=== PATIENT | female | born 1960 | race Caucasian/White ===

== ENCOUNTER → 2023-11-09 08:22 | Outpatient (REF) | payer BC, SELFPAY | LOC: WDC 08:22 | PROVIDERS: ATTENDING PHYSICIAN Obstetrics & Gynecology Gynecology; FAMILY PHYSICIAN Family Medicine | DX: N64.4 Mastodynia (principal) | CPT/HCPCS: 76642; 77061; 77065 ==

== ENCOUNTER 2024-11-03 14:45 | Emergency (ER) | payer BC, SELFPAY ==
[2024-11-03 14:58] VITALS: BP 125/91
--- NOTE | 2024-11-03 17:01 | ED.GENMED ---
History of Present Illness
General
Chief Complaint: Fall
Source: patient and spouse
Time Seen by Provider: 11/03/24 16:01
History of Present Illness
History of Present Illness:
Note:
CHIEF COMPLAINT(S)
Right wrist pain following a fall.
HISTORY OF PRESENT ILLNESS
The patient is a 64-year-old female with a history of severe osteoporosis who presents with right wrist pain after a fall. 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
hands. The pain is localized to the right wrist, particularly at the dorsal medial aspect distal to the ulnar styloid. She denies pain in the elbow, shoulder, clavicle, head, neck, back, and legs, and there is no history of head injury or loss of
consciousness. The patient's spouse provided additional history, confirming the details of the fall. The patient has been previously treated with romosozumab (Evenity) for a year and has an upcoming dose of denosumab (Prolia). She has been informed
that her osteoporosis is significant, which increases her risk of fractures even with minor trauma.
PHYSICAL EXAM
- General: The patient is awake, alert, and oriented, without any distress.
- Head: No evidence of head injury; no hematoma, contusions, or abrasions noted.
- Musculoskeletal:
- Neck: Normal range of motion.
- Right Upper Limb: Right elbow, right shoulder, and right clavicle are non-tender with normal range of motion.
- Right Wrist: Limited range of motion due to pain; tenderness is noted at the dorsal medial aspect distal to the ulnar styloid, and minor tenderness at the dorsal lateral aspect and distal radius.
- Lower Extremities: Able to walk post-fall without significant difficulty. abrasions to R knee
PLAN
- Splint the right wrist for stabilization and pain management.
- Offer an x-ray of the right toe if symptoms worsen, though treatment would typically include a hard sole shoe or albert taping.
- Follow up with the patient�s primary care provider or patient service specialist, especially regarding osteoporosis management.
DIFFERENTIAL DIAGNOSIS
The Differential Diagnosis includes, in no particular order and is not limited to:
1. Distal radius fracture
2. Carpal bone fracture
3. Wrist sprain
4. Contusion of the wrist
5. Osteoporotic fracture
6. Scaphoid fracture
7. Triquetrum fracture
8. Ligamentous injury of the wrist
9. Soft tissue injury
10. Metacarpal fracture
CARE-UPDATE
11/03/24 - 17:02
Updated the assessment to include a right triquetrum fracture based on independent review of the films.
Disposition:
ASSESSMENT
The patient has a right wrist fracture after a fall. multiple abrasions
EMERGENCY TREATMENTS ADMINISTERED
A volar splint was placed on the right wrist.
PLAN
Advise close outpatient orthopedic follow-up.
PATIENT EDUCATION AND COUNSELING
Recommended rest, ice, and elevation of the right wrist. Keep abrasions clean and dry.
FOLLOW-UP INSTRUCTIONS
Follow up with an patient service specialist for the right wrist fracture.
MEDICAL DECISION MAKING
1. Number & Complexity of Problems: Chronic conditions affecting care include severe osteoporosis. Differential diagnoses considered include wrist fracture.
2. Data Reviewed: Information was obtained from a spouse as an independent historian.
PATHOLOGIES TO CONSIDER
Possible osteoporotic fracture given the patients severe osteoporosis and wrist fracture after the fall.
Past History
Past History
ED Past Medical History: Psychiatric and Other
ED Past Surgical History: Appendectomy, , Orthopedic and Other
Patient has exhibited threatening behavior?: No
Social History
Tobacco: Former smoker (quit 20 years ago)
Alcohol: Occasional
Drug: None
Personal:
Living: with family
Family History
Family History: CAD (grandparents); Negative Early CAD
Phy Exam
Physical Exam
Physical Exam:
.
Course
Orders/Labs/Results
Orders:
Orders
11/03/24 14:48
Knee, Right 4 or More Views [CR Knee- Right 4 Or More View*] Urgent
Comment:
Reason For Exam: injury
Wrist, Right 3 Views [CR Wrist - Right Min 3 Views] Urgent
Comment:
Reason For Exam: injury
11/03/24 16:15
CR Toe(s) Min 2 Vw Right Urgent
Comment:
Reason For Exam: pain
11/03/24 17:01
Splints/Slings/Crut- Treatment ONCE
Location: Right
Type of Splint: Volar
Ibuprofen [Motrin] 600 mg PO NOW STA
Vital Signs
Initial and Last Documented VS:
Initial Vital Signs
Temp Pulse Resp BP Pulse Ox
97.5 F 65 16 125/91 99
11/03/24 14:58 11/03/24 14:58 11/03/24 14:58 11/03/24 14:58 11/03/24 14:58
Last Documented Vital Signs
Temp Pulse Resp BP Pulse Ox
97.5 F 65 16 125/91 99
11/03/24 14:58 11/03/24 14:58 11/03/24 14:58 11/03/24 14:58 11/03/24 17:09
*Pulse Oximetry
SaO2: 99
Oxygen Mode of Delivery: Room air
Patient hypoxic: no
*Critical Care Note
Total Time (30-74mins, 75-104mins- exclusive of procedures): Not Applicable
ED Attending Note
-
Portions of this chart may have been created with voice recognition software.� Occasional wrong word or��sound alike� substitutions may have occurred due to the inherent limitations of voice recognition software.
Discharge Plan
Departure
Patient Disposition: Home (Routine Discharge)
Date of Disposition: 11/03/24
Time of Disposition: 17:03
Patient with high blood pressure during this ER visit?: Yes
Discharge Problem:
Fracture of wrist
Instructions: BLOOD PRESSURE, Wrist Fracture
Prescriptions:
No Action
aspirin 81 MG tablet,delayed release (DR/EC)
81 mg PO DAILY
cetirizine [Allergy Relief (cetirizine)] 10 MG capsule
10 mg PO DAILY
famotidine 40 MG tablet
40 mg PO DAILY PRN (Reason: reflux)
valacyclovir 500 MG tablet
500 mg PO DAILY
propranolol 10 MG tablet
20 mg PO BID
venlafaxine 37.5 MG tablet
37.5 mg PO HS
sertraline 25 MG tablet
75 mg PO HS
ibuprofen 400 MG tablet
400 mg PO Q6HPRN PRN (Reason: pain)
guaifenesin [Mucus Relief ER] 600 MG tablet extended release 12hr
600 mg PO Q12H
Referrals:
Madison Butcher DO [Active, Orthopedics]
Sidra Green DO [Family Provider, Family Practice]
Activity Restrictions/Additional Instructions:
Please rest, ice and elevate your injured parts. Use ibuprofen and Tylenol as needed for pain control. Please see orthopedics in the next 1 week for follow-up and reevaluation.
Interventions
Interventions:
*Risk Screen - Suicide Last Done: 11/03/24 14:58
*General Assessment Last Done: 11/03/24 17:35
*Neglect/Abuse Screening Last Done: 11/03/24 17:35
*ED- Fall Risk Assessment Last Done: 11/03/24 17:35
*ED COVID-19 Vaccine History Last Done: 11/03/24 17:35
*Nursing Disposition Last Done: 11/03/24 18:05
ED-Musculoskeletal Assessment Last Done: 11/03/24 16:30
ED- Neurological Assessment Last Done: 11/03/24 16:30
ED-Skin Assessment Last Done: 11/03/24 16:30
Discharge Date and Time
Discharge Date/Time: 11/03/24 18:06
Print Language: GREENLANDIC
[2024-11-03] MEDS: MOTRIN 600 MG PO (17:17)
[2024-11-03 17:40] VITALS: BMI 27.3
== END 2024-11-03 18:06 | disposition home or self-care (01) ==
LOC: EMR 14:45
PROVIDERS: EMERGENCY PHYSICIAN Emergency Medicine; FAMILY PHYSICIAN Family Medicine
DX: S62.111A Displaced fracture of triquetrum [cuneiform] bone, right wrist, initial encounter for closed fracture (principal); W18.30XA Fall on same level, unspecified, initial encounter; M81.0 Age-related osteoporosis without current pathological fracture; Z82.49 Family history of ischemic heart disease and other diseases of the circulatory system; Z87.891 Personal history of nicotine dependence; Z90.49 Acquired absence of other specified parts of digestive tract
CPT/HCPCS: 99283; 29125; 73110; 73564; 73660